=== PATIENT | female | born 1960 | race Caucasian/White ===

== ENCOUNTER 2019-11-14 08:08 | Outpatient (CLI) | payer BC, SELFPAY ==
--- NOTE | ~2019-11-14 | MM_ITS ---
EXAMINATION: MM screening [facility] BI w marielos HISTORY: Screening mammogram TECHNIQUE: Craniocaudal and mediolateral oblique 3-D tomosynthesis images were obtained and synthetic 2-D images were generated. CAD analysis was submitted and interpreted. COMPARISON: Comparison to multiple prior studies sequentially, with oldest reviewed study dated 05/14. BREAST PARENCHYMAL COMPOSITION: There are scattered areas of fibroglandular density. FINDINGS: There is no evidence of suspicious mass, calcification, or architectural distortion to sugg est malignancy in either breast. There has been no suspicious interval change. IMPRESSION: 1. No mammographic evidence of malignancy. 2. Recommend routine screening mammography in one year. BI-RADS Category 1: Negative Reviewed, dictated and finalized at location A. ASSEMBLER
== END 2019-11-14 08:09 | disposition home or self-care (01) ==
LOC: ANHIMG 08:18
DX: Z12.31 Encounter for screening mammogram for malignant neoplasm of breast (principal)
CPT/HCPCS: 77063; 77067

== ENCOUNTER 2020-11-16 13:57 | Outpatient (CLI) | payer BC, SELFPAY ==
--- NOTE | ~2020-11-16 | MM_ITS ---
EXAMINATION: MM screening [facility] BI w marielos HISTORY: Screening mammogram TECHNIQUE: Craniocaudal and mediolateral oblique 3-D tomosynthesis images were obtained and synthetic 2-D images were generated. CAD analysis was submitted and interpreted. COMPARISON: November 14, 2019, September 22, 2018 bilateral digital screening mammogram examinations. BREAST PARENCHYMAL COMPOSITION: There are scattered areas of fibroglandular density. FINDINGS: There is no evidence of suspicious mass, calcification, or architectural distortion to sugg est malignancy in either breast. There has been no suspicious interval change. IMPRESSION: 1. No mammographic evidence of malignancy. 2. Recommend routine screening mammography in one year. BI-RADS Category 1: Negative Reviewed, dictated and finalized at location A. ATTENDANT
== END 2020-11-16 13:58 | disposition home or self-care (01) ==
LOC: ANHIMG 14:02
DX: Z12.31 Encounter for screening mammogram for malignant neoplasm of breast (principal)
CPT/HCPCS: 77063; 77067

== ENCOUNTER 2021-12-03 09:23 | Outpatient (CLI) | payer BC, SELFPAY ==
--- NOTE | ~2021-12-03 | MM_ITS ---
EXAMINATION: MM screening [facility] BI w marielos HISTORY: Screening mammogram TECHNIQUE: Craniocaudal and mediolateral oblique 3-D tomosynthesis images were obtained and synthetic 2-D images were generated. CAD analysis was submitted and interpreted. COMPARISON: 11/16/2020, 11/14/2019, 09/22/2018 BREAST PARENCHYMAL COMPOSITION: There are scattered areas of fibroglandular density. FINDINGS: There is no evidence of suspicious mass, calcification, or architectural distortion to sugg est malignancy in either breast. There has been no suspicious interval change. IMPRESSION: 1. No mammographic evidence of malignancy. 2. Recommend routine screening mammography in one year. BI-RADS Category 1: Negative Reviewed, dictated and finalized at location A.
== END 2021-12-03 09:24 | disposition home or self-care (01) ==
LOC: ANHIMG 09:25
DX: Z12.31 Encounter for screening mammogram for malignant neoplasm of breast (principal)
CPT/HCPCS: 77063; 77067

== ENCOUNTER 2025-02-08 09:41 | Outpatient (CLI) | payer MEDICARE, SELFPAY ==
--- NOTE | ~2025-02-08 | MM_ITS ---
EXAMINATION: MM screening [facility] BI w marielos HISTORY: Screening TECHNIQUE: Craniocaudal and mediolateral oblique 3-D tomosynthesis images were obtained and synthetic 2-D images were generated. CAD analysis was submitted and interpreted. COMPARISON: Comparison to multiple prior studies sequentially, with oldest reviewed study dated 10/2018. BREAST PARENCHYMAL COMPOSITION: Not dense: There are scattered areas of fibroglandular density. FINDINGS: There is no evidence of suspicious mass, calcification, or architectural distortion to sugg est malignancy in either breast. There has been no suspicious interval change. IMPRESSION: 1. No mammographic evidence of malignancy. 2. Recommend routine screening mammography in one year. BI-RADS Category 1: Negative Reviewed, dictated and finalized at location B.
--- OUTSIDE RECORDS SUMMARY | 2025-02-08 10:26 | XMS_ITS | Clinical Summary ---
Author Organization [facility] Address [address] [place] [id number] Care Team Providers Care Warehouse Guard Name Role Phone Trini Pond NP Primary Care Provider [phone] Allergies Active Allergy Reactions Criticality Noted Date Comments Penicillins Rash Medium 06/06/2024 Medications mupirocin (BACTROBAN) 2 % ointmentIndicat ions:External nasal lesion Apply topically 3 (three) times a day 22 g 4 Active Active Problems No known active problems Immunizations Immunization Administration Dates Next Due Influenza, Unspecified 09/21/2024(Deferr ed: Patient Refused),09/21/2023(Deferred: Patient Refused) Family History Medical History Relation Name Comments Hearing loss Mother Leandra Ruiz Stroke Mother Leandra Ruiz Relation Name Status Comments Mother Leandra Ruiz Social History Tobacco Use Types Packs/Day Years Used Date Smoking Tobacco: Never Cigarettes Smokeless Tobacco: Never Tobacco Cessation:Counseling Given: Not Answered PHQ-2 Answer Date Recorded PHQ-2 Total Score (If total score is 3 or more points, staff should administer the PHQ-9) 0 09/28/2024 Comments Unknown Sex and Gender Information Value Date Recorded Sex Assigned at Not on file Legal Sex Female 10:03 AM CDT Gender Identity Not on file Sexual Orientation Not on file Obstetrics History Last Filed Vital Signs Vital Sign Reading Time Taken Comments Blood Pressure 112/86 09/28/2024 11:03 AM MAIL OPENER Pulse 71 09/28/2024 11:03 AM MAIL OPENER Temperature 36.8 C (98.2 F) 09/28/2024 11:03 AM MAIL OPENER Respiratory Rate 18 06/06/2024 11:24 AM CDT Oxygen Saturation 96% 09/28/2024 11:03 AM MAIL OPENER Inhaled Oxygen Concentration - - Weight 68.5 kg (151 lb) 09/28/2024 11:03 AM MAIL OPENER Height 157.5 cm (5' 2 ) 09/28/2024 11:03 AM MAIL OPENER Body Mass Index 27.62 09/28/2024 11:03 AM MAIL OPENER Plan of Treatment Health Maintenance Due Date Last Done Comments Breast Cancer Screening-Mammogram 1960 Cervical Cancer Screening 1960 Colon Cancer Screening-Colonoscopy 1960 Fall Risk Assessment 1960 Osteoporosis Screening-Bone Density Scan 1960 DTaP/Tdap/Td Vaccine (1 - Tdap) 01/29/1971 Hepatitis B Screening 01/29/1978 Pneumococcal vaccine 65+ (1 of 1 - PCV) 01/29/2010 Zoster Vaccine (1 of 2) 01/29/2010 Influenza Vaccine (Season Ended) 2025 Depression Screening 09/28/2025 09/28/2024 Well Visit 65+ 09/28/2025 09/28/2024 Hepatitis C Screening Completed 10/31/2024 Procedures Procedure Name Priority Date/Time Associated Diagnosis Comments HEPATITIS C ANTIBODY Routine 10/31/2024 9:23 AM MAIL OPENER from Last 3 Months or Most Recently Relevant to Health Maintenance Results * Hepatitis C antibody (10/31/2024 9:23 AM MAIL OPENER) Hep C Ab Non Reactive Non Reactive [facility] - 01 Comment: HCV antibody alone does not differentiate between previously resolved infection and active infection. Equivocal and Reactive HCV antibody results should be followed up with an HCV RNA test to support the diagnosis of active HCV infection. 10/31/2024 9:23 AM MAIL OPENER 10/31/2024 Narrative [facility] - 11/01/2024 2:06 AM MAIL OPENER Performed at: [facility] [id number] Rfid Analyst: Osiel Stockton PhD, Phone: [phone] us Trini Pond NP LAB MICROBIOLOGY - GENERAL ORDER CARLYLE Final Result [facility] - 01 from Last 3 Months or Most Recently Relevant to Health Maintenance Insurance [employer] OOS Care Teams Warehouse Guard Relationship Specialty Start Date End Date Trini Pond NP [address] [place] [address] PCP - General Family Medicine 09/28/24
--- OUTSIDE RECORDS SUMMARY | 2025-02-08 10:26 | XMS_ITS | Referral Summary ---
Author Organization [facility] Address [address] [place] [id number] Care Team Providers Care Hair Spinner Name Role Phone Trini Pond NP Primary Care Provider [phone] Allergies Active Allergy Reactions Criticality Noted Date Comments Penicillins Rash Medium 06/06/2024 Medications mupirocin (BACTROBAN) 2 % ointmentIndicat ions:External nasal lesion Apply topically 3 (three) times a day 22 g 4 Active Active Problems No known active problems Immunizations Immunization Administration Dates Next Due Influenza, Unspecified 09/21/2024(Deferr ed: Patient Refused),09/21/2023(Deferred: Patient Refused) Social History Tobacco Use Types Packs/Day Years [...] on file Sexual Orientation Not on file Last Filed Vital Signs Vital Sign Reading Time Taken Comments Blood Pressure 112/86 09/28/2024 11:03 AM OPERATOR AND TRUCK DRIVER Pulse 71 09/28/2024 11:03 AM OPERATOR AND TRUCK DRIVER Temperature 36.8 C (98.2 F) 09/28/2024 11:03 AM OPERATOR AND TRUCK DRIVER Respiratory Rate 18 06/06/2024 11:24 AM CDT Oxygen Saturation 96% 09/28/2024 11:03 AM OPERATOR AND TRUCK DRIVER Inhaled Oxygen Concentration - - Weight 68.5 kg (151 lb) 09/28/2024 11:03 AM OPERATOR AND TRUCK DRIVER Height 157.5 cm (5' 2 ) 09/28/2024 11:03 AM OPERATOR AND TRUCK DRIVER Body Mass Index 27.62 09/28/2024 11:03 AM OPERATOR AND TRUCK DRIVER Plan of Treatment Not on file Procedures Procedure Name Priority Date/Time Associated Diagnosis Comments HEPATITIS C ANTIBODY Routine 10/31/2024 9:23 AM OPERATOR AND TRUCK DRIVER from Last 3 Months or Most Recently Relevant to Health Maintenance Results * Hepatitis C antibody (10/31/2024 9:23 AM OPERATOR AND TRUCK DRIVER) Pathologist [facility] Hep C Ab Non Reactive Non Reactive [facility] - 01 Comment: HCV antibody alone does not differentiate between previously resolved infection and active infection. Equivocal and Reactive HCV antibody results should be followed up with an HCV RNA test to support the diagnosis of active HCV infection. 10/31/2024 9:23 AM OPERATOR AND TRUCK DRIVER 10/31/2024 Narrative [facility] - 11/01/2024 2:06 AM OPERATOR AND TRUCK DRIVER Performed at: - [facility] [id number] Edger Tailer: Osiel Stockton PhD, Phone: [phone] us Trini Pond NP LAB MICROBIOLOGY - GENERAL ORDER CARLYLE Final Result [facility] - 01 from Last 3 Months or Most Recently Relevant to Health Maintenance [place] [address] [facility] O[facility] Care Teams Hair Spinner Relationship Specialty Start Date End Date Trini Pond NP [address] [place] [address] PCP - General Family Medicine 09/28/24
== END 2025-02-08 09:42 | disposition home or self-care (01) ==
LOC: ANHIMG 09:47
PROVIDERS: PCP Obstetrics & Gynecology Gynecology; Visit Provider Obstetrics & Gynecology Gynecology
DX: Z12.31 Encounter for screening mammogram for malignant neoplasm of breast (principal)
CPT/HCPCS: 77063; 77067

== ENCOUNTER 2025-06-12 08:26 | Outpatient (CLI) | payer MEDICARE, SELFPAY ==
--- NOTE | ~2025-06-12 | DEXA_ITS ---
Bone Density Report Name: ADRIANE RICHARDS Age: 65 Sex: Female Ethnicity: White Date of : 1960 Indication: postmenopausal; screening for osteoporosis; height loss; Referring Provider: MATTEO CHAO Study: Bone densitometry was performed. Exam Date: June 12, 2025 Accession number: [id number] Bone Density: Region BMD T-score Z-score Classification AP Spine(L1-L4) 1.072 0.2 2.0 Normal Femoral Neck (Left) 0.648 -1.8 -0.3 Osteopenia Total Hip (Left) 0.779 -1.3 -0.1 Osteopenia Femoral Neck (Right) 0.687 -1.5 0.1 Osteopenia Total Hip (Right) 0.837 -0.9 0.4 Normal Total Hip Mean 0.808 -1.1 0.2 Osteopenia World Health Organization criteria for BMD impression classify patients as: Normal (T-score at or above -1.0), Osteopenia (T-score between -1.0 and -2.5), or Osteoporosis (T-score at or below -2.5). 10-year Fracture Risk(1): Major Osteoporotic Fracture 10.0% Hip Fracture 1.3% Reported Risk Factors: [place] (), Neck BMD=0.648, BMI=27.6 (1) FRAX(R) Version 3.08. Fracture probability calculated for an untreated patient. Fracture probability may be lower if the patient has received treatment. Clinical Information Provided by Patient: Patient maximum height was 63 Menopause Age: 55 No regular weight bearing exercise Drinks caffeinated beverages Onset of menses at age 15 Number of children 2 Impression: The patient has low bone mass, based on the Left Femoral Neck T-score. The patient has an estimated ten-year risk of hip fracture of 1.3% and an estimated ten-year risk of major fracture of 10%, based on the WHO FRAX algorithm. Discussion: BONE DENSITY IS LOW AT ONE OR MORE SKELETAL SITES. This patient's lowest T-score is low at one or more skeletal sites. It meets the World Health Organization's (WHO) criteria for ?low bone mass? (T-score between -1.0 and -2.5). The patient's 10-year risk of fracture as calculated by FRAX is less than the threshold where pharmacological therapy is recommended by the National Osteoporosis Foundation (NOF). However, all treatment decisions require clinical judgment and consideration of individual patient factors, including patient preferences, comorbidities, previous drug use, risk factors not captured in the FRAX model (e.g., frailty, falls, vitamin D deficiency, increased bone turnover, interval significant decline in bone density) and possible under or overestimation of fracture risk by FRAX. The patient should follow a healthful lifestyle (good nutrition with adequate calcium and vitamin D, and appropriate weight-bearing exercise). Follow-Up: Consider repeating this study in 2 to 3 years to reassess this patient's status, or sooner if there is some new clinical indication. Reported by: DARLENE on 06/12/2025 8:56:00 AM. Reviewed, dictated and finalized at location A.
== END 2025-06-12 08:27 | disposition home or self-care (01) ==
LOC: MICIMG 08:28
PROVIDERS: PCP Obstetrics & Gynecology Gynecology; Visit Provider Obstetrics & Gynecology Gynecology
DX: Z78.0 Asymptomatic menopausal state (principal); M85.852 Other specified disorders of bone density and structure, left thigh; M85.851 Other specified disorders of bone density and structure, right thigh
CPT/HCPCS: 77080